=== PATIENT | male | born 1995 | race Caucasian/White ===

== ENCOUNTER 2020-04-30 12:54 | Outpatient (CLI) | payer OTHER, SELFPAY ==
--- NOTE | 2020-04-30 13:03 | XR_ITS ---
WS: [id number] Exam: XR chest 2V* [id number] Date/Time of Exam: 04/30/2020 1:40 PM Reason For Exam: BACK PAIN/CHEST DEFORMITY No priors. Findings: The lungs are clear and fully expanded. Costophrenic angles are sharp. No infiltrates. Bronchovascula r relief appears normal. Cardiac silhouette is unremarkable. Bony elements are intact. XR/XR chest 2V* [id number] IMPRESSION: Unremarkable chest radiograph.
== END 2020-04-30 12:55 | disposition home or self-care (01) ==
PROVIDERS: PCP Nurse Practitioner Family; Visit Provider Nurse Practitioner Family
DX: M54.9 Dorsalgia, unspecified (principal)
CPT/HCPCS: 71046